=== PATIENT | male | born 1980 | race Caucasian/White ===

== ENCOUNTER 2019-09-30 18:35 | Emergency (ER) | payer OTHER, SELFPAY ==
[2019-09-30 18:42] VITALS: BP 150/104; PULSE 87; RESP 16; TEMP 37.1; O2SAT 99
--- NOTE | 2019-09-30 19:09 | ED.NECK ---
HPI - Neck Pain/Injury General Chief Complaint: Neck Pain/Injury Stated Complaint: NECK/SHOULDER PAIN Time Seen by Provider: 09/30/19 19:01 Source: patient and RN notes reviewed Mode of arrival: ambulatory Limitations: no limitations History of Present Illness HPI Narrative: Patient presents today with a 4-day history of pain to the right neck and upper back that has been worsening since onset. Pain was present when he woke up 4 days ago. He does report some intermittent tingling to his fingers. Denies weakness to the arm. Pain increases with movement of the head. Pain decreases when he stands and increases when he sits. He currently rates his pain 8/10 and has been taking Aleve without relief. He has also been seeing a chiropractor, and his last visit was just prior to arrival. States his chiropractor told him he may need some muscle relaxers and instructed him to come to urgent care today. MD complaint: neck pain Related Data Home Medications Medication Instructions Recorded Confirmed naproxen sodium [Aleve] 220 mg PO Q12H PRN 09/30/19 09/30/19 Allergies Allergy/AdvReac Type Severity Reaction Status Date / Time No Known Allergies Allergy Verified 09/30/19 18:48 Review of Systems Review of Systems: Narrative: CONSTITUTIONAL: Denies body aches, fever, chills, or sweats. EYES: Denies visual changes, redness, or discharge. ENT: Denies rhinorrhea, congestion, sore throat, or otalgia. CARDIOVASCULAR: Denies chest pain, palpitations, or edema. RESPIRATORY: Denies cough or dyspnea. GASTROINTESTINAL: Denies abdominal pain, nausea, vomiting, or diarrhea. GENITOURINARY: Denies dysuria or hematuria. SKIN: Denies rash, itching, or wounds. MUSCULOSKELETAL: Denies joint pain, or myalgia.+ Neck pain, right upper back pain NEUROLOGIC: Denies headache, numbness, tingling, or weakness. PSYCH: Denies depression or anxiety. PMFSH Comments At time of signature, I have reviewed and agree with nursing past medical, surgical, social and family history unless otherwise noted. Please see nursing chart for further information. There is no relevant family history pertinent to the presenting complaint Exam Narrative: Exam Narrative: GENERAL: Well-appearing, well-nourished, and in no acute distress. HEAD: Normocephalic, atraumatic. EYES: EOMI. No redness or drainage. Conjunctivae normal. ENT: Mucous membranes pink and moist. Nares clear. No rhinorrhea. TMs normal bilaterally. Throat normal. Uvula midline. NECK: Normal AROM with some increased pain to the right neck. Supple. No lymphadenopathy. Tenderness to the right cervical paraspinal muscles, extending to the right medial trapezius. CHEST: No respiratory distress. MUSCULOSKELETAL: No bony tenderness of the spine. EXTREMITIES: Normal range of motion. No edema. SKIN: Warm, dry, no rash. NEURO: No focal deficits. Alert and oriented x3. Gait steady. Handgrips normal. PSYCH: Normal affect. No signs of depression or anxiety. Course Vital Signs Vital signs: Vital Signs Temperature 98.7 F 09/30/19 18:42 Pulse Rate 87 09/30/19 18:42 Respiratory Rate 16 09/30/19 18:42 Blood Pressure 150/104 H 09/30/19 18:42 Pulse Oximetry 99 09/30/19 18:42 Temperature 98.7 F 09/30/19 18:42 Pulse Rate 87 09/30/19 18:42 Respiratory Rate 16 09/30/19 18:42 Blood Pressure 150/104 H 09/30/19 18:42 Pulse Oximetry 99 09/30/19 18:42 Reviewed. Pt has been instructed to follow up with his PCP regarding his elevated blood pressure today. MDM - Neck Pain/Injury Differential Diagnosis Differential diagnosis: Likely disc disorder of cervical region, whiplash injury to neck, cervical radiculopathy, torticollis and strain of neck muscle Critical Care Time Critical Care Time Critical Care Time: No Discharge Plan Discharge Clinical Impression: Strain of right trapezius muscle Patient Disposition: Home, Self-Care Condition: Stable Instructions: Muscle Spa
== END 2019-09-30 19:12 | disposition home or self-care (01) ==
PROVIDERS: Emergency Provider Nurse Practitioner; PCP Internal Medicine
DX: S46.819A Strain of other muscles, fascia and tendons at shoulder and upper arm level, unspecified arm, initial encounter (principal); X58.XXXA Exposure to other specified factors, initial encounter
CPT/HCPCS: 99203; G0463